=== PATIENT | male | born 1975 | race Caucasian/White ===

== ENCOUNTER 2016-07-27 13:44 | Day surgery (SDC) | payer OTHER ==
[2016-07-27] MEDS ORDERED: LACTATED RINGERS 1,000 ML IV ONE (14:11)
[2016-07-27] MEDS ORDERED: fentaNYL 250 MCG/5 ML VIAL IVP ONE (15:30)
[2016-07-27] MEDS ORDERED: MIDAZOLAM 2 MG/2 ML VIAL IVP ONE (15:30)
== END 2016-07-27 13:45 | disposition home or self-care (01) ==
PROC: 0DJ08ZZ Inspection of Upper Intestinal Tract, Via Natural or Artificial Opening Endoscopic (ICD-10-PCS; principal; 2016-07-27 15:00)
DX: K21.9 Gastro-esophageal reflux disease without esophagitis (principal); F45.8 Other somatoform disorders; K52.9 Noninfective gastroenteritis and colitis, unspecified; E11.9 Type 2 diabetes mellitus without complications; F17.210 Nicotine dependence, cigarettes, uncomplicated; F41.9 Anxiety disorder, unspecified
CPT/HCPCS: 43235; J3010; J7120

== ENCOUNTER 2016-11-08 10:04 | Outpatient (CLI) | payer OTHER ==
--- NOTE | 2016-11-08 11:53 | CT Report ---
CT ABDOMEN AND PELVIS WITHOUT CONTRAST: 11/08/2016 CLINICAL INDICATION: Ventral hernia. TECHNIQUE: Axial CT images of the abdomen and pelvis were obtained without oral or intravenous contr ast. No previous CT is available for comparison. FINDINGS: Limited evaluation of the lung bases is unremarkable. ABDOMEN: The liver demonstrates diffuse decrease in attenuation, compatible with fatty infiltration. The spleen, pancreas, kidneys and adrenal glands are unremarkable. The gallbladder is normal. No bowel dilatation, free gas, or free fluid is present. No abdominal adenopathy is seen. No ventral h ernia is appreciated. PELVIS: The appendix is seen in the right lower quadrant, and is normal in caliber. The pelvic orga ns are unremarkable. No pelvic adenopathy or free fluid is present. Osseous structures demonstrate mild degenerative changes and postoperative changes of previous L4-5 d iscectomy, with metallic disk spacer in place. IMPRESSION: FATTY INFILTRATION OF THE LIVER. NO EVIDENCE OF VENTRAL HERNIA. In accordance with CT protocol optimization, one or more of the following dose reduction techniques w ere utilized for this exam: automated exposure control, adjustment of mA and/or KV based on patient size, or use of iterative reconstructive technique. JOB #: [id number] EXT JOB #:[id number]
== END 2016-11-08 10:05 | disposition home or self-care (01) ==
LOC: DI 10:04
PROVIDERS: ATTEND Surgery
DX: K76.0 Fatty (change of) liver, not elsewhere classified (principal)
CPT/HCPCS: 74176